=== PATIENT | female | born 1975 | race Caucasian/White ===

== ENCOUNTER 2018-02-05 12:58 | Emergency (ER) | payer OTHER ==
[~2018-02-05] VITALS: Ht 157.5 cm; Wt 125.0 kg
[~2018-02-05 12:58] MED LIST: LEVAQUIN750 MG PO; NAPROSYN500 MG PO; NOHOMEMEDS; PHENERGAN-CODE120 ML PO
[2018-02-05 15:28] LABS: HEMATOCRIT 35.4 % (36.0-46.0); HEMOGLOBIN 12.2 G/DL (11.9-15.5); MCH 31.1 PG (29.0-34.0); MCHC 34.5 G/DL (30.0-36.0); MCV 90.3 FL (83-99); PLATELET COUNT 186 K/uL (156-360); RBC DIS.WIDTH-CV 12.2 % (11.8-14.6); RBC DIS.WIDTH-SD 40.1 % (39-53); RED BLOOD COUNT 3.92 M/uL (3.80-5.20); WHITE BLOOD COUNT 4.7 K/uL (4.1-10.2)
[2018-02-05 15:36] LABS: ALBUMIN 3.7 g/dL (3.2-4.8); CHLORIDE 109 mEq/L (99-109); SODIUM 139 mEq/L (136-147)
[2018-02-05 15:38] LABS: GLUCOSE 92 mg/dL (70-99)
[2018-02-05 15:39] LABS: TOTAL PROTEIN 6.2 g/dL (6.4-8.3)
[2018-02-05 15:40] LABS: TOTAL BILIRUBIN 1.1 mg/dL (0.0-1.0)
[2018-02-05 15:42] LABS: ALKALINE PHOSPHATASE 24 IU/L (3-129); CREATININE 0.7 mg/dL (0.6-1.3); GFR ESTIMATE (CALCULATED) > 59 mL/min/
[2018-02-05 15:43] LABS: UREA NITROGEN (BUN) 6 mg/dL (9-23)
[2018-02-05 15:44] LABS: AST (GOT) 20 IU/L (2-34)
[2018-02-05 15:45] LABS: ALT (GPT) 23 IU/L (3-49)
[2018-02-05 15:51] LABS: QUANTITATIVE HCG < 4.0 MIU/ML
[2018-02-05] MEDS ORDERED: REGLAN10 MG PO (16:27)
[2018-02-05] MEDS ORDERED: MOTRIN800 MG PO (16:27)
[2018-02-05 16:30] LABS: APPEARANCE CLEAR ((CLEAR)); BILIRUBIN NEGATIVE; BLOOD NEGATIVE; COLOR YELLOW ((YELLOW)); GLUCOSE (STRIP) NEGATIVE; KETONES NEGATIVE; LEUKOCYTES NEGATIVE; NITRITE NEGATIVE; PROTEIN (STRIP) NEGATIVE; SPECIFIC GRAVITY 1.013 (1.000-1.030); UCUL ADDED? NO; UROBILINOGEN 0.2 MG/DL (0.2-1.0)
[2018-02-05 16:51] VITALS: BP 136/79
== END 2018-02-05 16:52 | disposition home or self-care (01) ==
LOC: RME 12:58 → EME 12:58 → RME 16:52
PROVIDERS: Nurse Practitioner Family
DX: G43.909 Migraine, unspecified, not intractable, without status migrainosus (principal); Z98.84 Bariatric surgery status; Z87.891 Personal history of nicotine dependence
CPT/HCPCS: 70450; 80053; 81003; 84702; 85027; 99281; 99284; J1100; J1200; J1885; J2765